=== PATIENT | male | born 1995 | race Caucasian/White ===

== ENCOUNTER 2016-09-20 22:42 | Emergency (ER) ==
[2016-09-20 22:50] VITALS: BP 124/73
[2016-09-20] MEDS ORDERED: MOTRIN PO ONE (23:25)
--- NOTE | 2016-09-20 23:29 | PROVIDER DOCUMENTATION ---
HPI-Respiratory General - General Chief Complaint: Cough Stated Complaint: CP ON INSPIRATION,DIZZINESS Time Seen by Provider: 09/20/16 23:13 Source: patient Allergies/Adverse Reactions: Patient Allergies Allergy/AdvReac Type Severity Reaction Status Date / Time No Known Allergies Allergy Verified 09/20/16 22:51 - History of Present Illness-Resp Nature of Presenting Problem: 21 year old M presents to the ED with a cc of cough, sore throat, and runny nose x3 days. PT states that he has also had chest wall pain with deep breathing and coughing. Quality of Pain: reports: aching Severity in ED: reports: mild Onset/Duration: reports: 3 days ago Timing: reports: still present Cough Quality/Degree: reports: mild Episode Frequency: no prior episodes Current Respiratory Medication Therapy: Initiated see nurses note Associated Symptoms: reports: chest pain/soreness, cough, nasal drainage, sore throat Similar Symptoms Previously?: No Recently seen or treated by another doctor?: No Review of Systems - Adult - REVIEW OF SYSTEMS - ADULT Constitutional: denies: chills, fever Eyes: reports: no symptoms reported Ears, Nose, Mouth & Throat: reports: sinus problem, throat pain. denies: ear pain Cardiovascular: reports: chest pain. denies: palpitations Respiratory: reports: cough. denies: shortness of breath Gastrointestinal: denies: abdominal pain, nausea, vomiting Genitourinary: reports: no symptoms reported Musculoskeletal: denies: muscle aches, muscle weakness Integumentary: denies: skin sores/ulcer, skin thickening Neurological: reports: no symptoms reported Psychiatric: reports: no symptoms reported Endocrine: reports: no symptoms reported Hematologic/Lymphatic: reports: no symptoms reported Allergic/Immunologic: reports: no symptoms reported All Other Systems: Reviewed and Negative Past History - Adult - PAST MEDICAL HISTORY-ADULT Review of Records: reports: Nursing Assessment Review, Medications Reviewed Major Childhood Illnesses: reports: denies history - PRIOR SURGERIES/PROCEDURES Surgical/Procedure History: reports: none - PRIOR HOSPITALIZATIONS Prior Hospitalizations: reports: none - IMMUNIZATION STATUS Childhood Immunizations: See Nurse Assessment Flu Vaccine: See Nurse Assessment - FAMILY HISTORY Family History: reviewed, not pertinent - SOCIAL HISTORY Smoking: non-smoker Substance Use: none/never Alcohol Use Frequency: never Physical Exam-General - PHYSICAL EXAM-ADULT Initial Vital Signs Reviewed: Yes - CONSTITUTIONAL General Appearance: appears well, alert, no apparent distress - RESPIRATORY Respiratory: chest non-tender, lungs clear, normal breath sounds - CARDIOVASCULAR Cardiovascular: normal peripheral pulses, regular rate, rhythm, no edema - GASTROINTESTINAL (ABDOMEN) Abdominal Exam: normal bowel sounds, non tender, soft - SKIN Integumentary: normal color, normal turgor, warm/dry - PSYCHIATRIC Psych/Mental Status: normal mood/affect, normal thought content, normal thought process, oriented x 3 Progress - PLAN OF CARE/RESULTS Progress/Plan/Lab Results: plan of care: imaging, medications, EKG Orders Category Date Time Status CHEST-2 VIEWS [RAD] Stat Exams 09/20/16 22:52 Taken Ibuprofen [Motrin] Med 09/20/16 23:25 Discontinued 800 mg PO NOW ONE EKG [EKG] Stat Ther 09/20/16 22:53 Ordered Vital Signs - 24 hr 09/20/16 22:49 Temperature 97.8 F Pulse Rate 66 Respiratory 18 Rate Blood Pressure 124/73 O2 Sat by Pulse 100 Oximetry Pt given results and will be d/c home w/ rx to follow up with PCP. Pt verbally understood instructions. PT remained clinically stable throughout the course of the ED stay and will return if symptoms worsen. - EKG 1 Time of EKG reading by physician:: 23:17 EKG Read and Signed by:: Curtis Michaels EKG Interpretation (*Must complete 3 of following elements*): Abnormal Rate: 73 Rhythm: sinus rhythm with marked sinus arrhythmia with short NM QRS: RBB (incomplete) - XRAY 1 XRAY Study: Chest Impression: Normal XRAY Interpretation: NAD: Dr. Michaels Departure - Departure Time of Disposition Order: 23:29 DIAGNOSIS: Costochondritis URI (upper respiratory infection) Qualifiers: URI type: unspecified URI Qualified Code(s): J06.9 - Acute upper respiratory infection, unspecified Disposition: HOME 01 Certified Medical Emergency: Emergent Condition: Good Additional Instructions: Follow up with primary care doctor. Return to ED for any new or worsening symptoms. Establish care with a primary physician by calling the physician referral line below. ED Follow Up Instructions: You have been treated by a care provider in the Emergency Department. These instructions are being provided to you so you can have an understanding of how to care for yourself upon discharge. Upon discharge from the Emergency Department, you are responsible for making arrangements for follow-up care by a physician of your choice. Take all prescribed medications as directed. Return to the Emergency Department immediately for any new or worsening symptoms. You may call the Physician Referral phone number at [phone] to obtain a list of Physicians who are taking new patients. Prescriptions: Ibuprofen [Motrin] 800 mg PO Q8H PRN PRN #30 tablet PRN Reason: Pain Codeine/Promethazine [Phenergan with Codeine] 10 ml PO TID PRN PRN #120 ml PRN Reason: Cough Attestation - Scribe Verification/Attestation Scribe:: Carie Hugo Acting as Scribe for:: Curtis Michaels Scribe documention review:: This chart was documented by a scribe and accurately reflects the service the provider performed and the decisions made by the provider. Physician Attestation - Physician Attestation I, the provider, attest to the following statement:: Curtis Michaels Physician documentation Attestation:: This documentation recorded by the scribe accurately reflects the service I personally performed and the decisions made by me.
--- NOTE | 2016-09-21 06:13 | EKG Report ---
Test Performed on : 09/20/2016 11:17:47 PM Test Reason : cp Blood Pressure : / mmHG Vent. Rate : 073 BPM Atrial Rate : 073 BPM P-R Int : 096 ms QRS Dur : 108 ms QT Int : 398 ms P-R-T Axes : 085 058 044 degrees QTc Int : 438 ms Sinus rhythm. with marked sinus arrhythmia. with short NC Incomplete right bundle branch block Borderline ECG When compared with ECG of 12-JAN-2015 19:51, No significant change was found Unconfirmed Result
--- NOTE | 2016-09-21 07:38 | Diag Imaging Result Document ---
PROCEDURE NAME: CHEST-2 VIEWS - 09/20/2016 CHEST X-RAY 2 VIEWS, 09/20/2016: COMPARISON: 07/13/2014. FINDINGS: The lungs are normally expanded and clear. Heart size and mediastinal contours are normal. No pneumothorax or pleural effusion. IMPRESSION: Negative exam.
== END 2016-09-20 23:43 | disposition home or self-care (01) ==
LOC: EDBD → ED 22:42
DX: J06.9 Acute upper respiratory infection, unspecified (principal); M94.0 Chondrocostal junction syndrome [Tietze]; R94.31 Abnormal electrocardiogram [ECG] [EKG]; R05 Cough; J02.9 Acute pharyngitis, unspecified; R09.89 Other specified symptoms and signs involving the circulatory and respiratory systems; R07.1 Chest pain on breathing; R07.89 Other chest pain
CPT/HCPCS: 71020; 93005; 99283